=== PATIENT | male | born 1985 | race Asian ===

== ENCOUNTER 2017-04-01 12:37 | Emergency (ER) | payer OTHER ==
[2017-04-01 12:47] VITALS: BP 127/79; PULSE 90; TEMP 98.3; BMI 26.4
[2017-04-01] MEDS ORDERED: DIPHTH,PERTUSS(ACELL),TET 0.5 ML DISP.SYRIN IM ONE (13:09)
--- NOTE | 2017-04-01 13:25 | PDOC ---
History of Present Illness - General Chief Complaint: Injury Stated Complaint: INJURY Time Seen by Provider: 04/01/17 12:50 History Source: Patient Exam Limitations: No Limitations - History of Present Illness Initial Comments: 04/01/17 13:13 CHIEF COMPLAINT: Laceration to left posterior forearm. HISTORY OF PRESENT ILLNESS: Patient is an otherwise healthy 32-year-old male, works for [employer] while attempting to breach a door, cut himself on glass. Wound bleeding, controlled with pressure. Initially with numbness to arm, now with good ROM and no numbness. Denies any other injury. Tetanus not up to date. Occurred: reports: just prior to arrival Severity: reports: moderate Upper Extremity Pain Location: left: forearm Method of Injury: reports: other (laceration) Modifying Factors: improves with: other (pressure) Extremity Pain Location - Extremity Pain Location Extremity Pain Locations: left: arm Past History - Past Medical History Allergies/Adverse Reactions: Allergies Allergy/AdvReac Type Severity Reaction Status Date / Time No Known Allergies Allergy Verified 04/01/17 12:44 Other medical history: NONE - Psycho/Social/Smoking Cessation Hx Anxiety: No Suicidal Ideation: No Smoking History: Never smoked Have you smoked in the past 12 months: No Information on smoking cessation initiated: No Hx Alcohol Use: No Drug/Substance Use Hx: No Substance Use Type: None Review of Systems - Review of Systems Constitutional: No: Symptoms Reported Respiratory: No: Symptoms reported Cardiac (ROS): No: Symptoms Reported Musculoskeletal: No: Symptoms Reported, Joint Pain, Joint Swelling Integumentary: Yes: Other (2 cm laceration, stellate to the left posterior forearm. ) Neurological: No: Symptoms reported Hematologic/Lymphatic: No: Symptoms Reported All Other Systems: Reviewed and Negative *Physical Exam - Vital Signs Last Vital Signs Temp Pulse Resp BP Pulse Ox 98.3 F 90 18 127/79 100 04/01/17 12:44 04/01/17 12:44 04/01/17 12:44 04/01/17 12:44 04/01/17 12:44 - Physical Exam General Appearance: Yes: Appropriately Dressed. No: Apparent Distress Respiratory/Chest: positive: Lungs Clear, Normal Breath Sounds Cardiovascular: positive: Regular Rhythm, Regular Rate Lymphatic: negative: Adenopathy Musculoskeletal: positive: Normal Inspection, Other (no tendon or ligament involvement, good range of motion. Good sensation.) Extremity: positive: Normal Capillary Refill, Normal Inspection, Normal Range of Motion, Swelling, Other (laceration). negative: Erythema, Inflammation Integumentary: positive: Normal Color, Swelling, Other (2 cm laceration, stellate to the left posterior forearm. ). negative: Erythema, Ecchymosis, Bruising Neurologic: positive: Alert, Normal Mood/Affect Procedures - Laceration/Wound Repair Left Posterior Arm Wound Length: 2.6 to 5.0 cm Wound Explored: clean Wound's Depth, Shape: irregular Irrigated w/ Saline: Yes Betadine Prep: Yes Wound Repaired With: Sutures Suture Size/Type: 5:0 Number of Sutures: 2 (Topical ethyl chloride used as anesthetic. ) Progress: 04/01/17 13:51 Xeroform with bacitracin applied, bleeding controlled, x-ray reviewed there is no foreign body noted. Patient tolerated procedure well. Kiet wrap placed on to maintain bleeding controlled. There was a small hematoma that developed under the wound patient states that he noticed it was getting bigger which may have been a knicked vein causing a hematoma under the skin. NO increase in size noted while in emergency department. After pressure dressing applied, there was no bleeding, no further hematoma growth. 04/01/17 13:52 ED Treatment Course - RADIOLOGY Radiology Studies Ordered: Category Date Time Status FOREARM- LEFT [RAD] Stat Radiology 04/01/17 13:08 Ordered Medical Decision Making - Medical Decision Making 04/01/17 13:27 A/P : Patient with laceration to left forearm. Sent to x-ray to rule out foreign body, there is no foreign body noted on x-ray. Boostrix given See procedure note for laceration repair Follow-up instructions given to patient, he verbalized understanding. 04/01/17 13:49 *DC/Admit/Observation/Transfer Diagnosis at time of Disposition: Arm laceration Qualifiers: Encounter type: initial encounter Laterality: left Qualified Code(s): S41.112A - Laceration without foreign body of left upper arm, initial encounter - Discharge Dispostion Disposition: HOME Condition at time of disposition: Good Admit: No - Patient Instructions Printed Discharge Instructions: Laceration Repair Additional Instructions: Keep area clean dry and intact Keep dressing on until tomorrow If any increased bleeding through the dressing return immediately to emergency department Keep area clean dry and intact bacitracin x3 days, then let it dry out Please return in 10 days for suture removal. Please return immediately to emergency department with any increased redness, swelling, signs of infection
== END 2017-04-01 14:12 | disposition home or self-care (01) ==
LOC: JERFT 12:37
PROC: 0HQCXZZ Repair Left Upper Arm Skin, External Approach (ICD-10-PCS; principal; 2017-04-01)
PROC: 3E0234Z Introduction of Serum, Toxoid and Vaccine into Muscle, Percutaneous Approach (ICD-10-PCS; 2017-04-01)
DX: S41.112A Laceration without foreign body of left upper arm, initial encounter (principal); W25.XXXA Contact with sharp glass, initial encounter; Y93.89 Activity, other specified; Y92.9 Unspecified place or not applicable
CPT/HCPCS: 73090-TC-LT; 90715; 99281-25